=== PATIENT | male | born 1955 | race American Indian/Alaskan Native ===

== ENCOUNTER 2021-11-16 14:20 | Emergency (ER) | payer MEDICARE ==
[2021-11-16 16:19] VITALS: BP 115/73
== END 2021-11-16 19:00 | disposition left against medical advice (07) ==
LOC: ED 14:20 → EDBD 14:20 → ED 19:00
DX: M54.2 Cervicalgia (principal); Z53.21 Procedure and treatment not carried out due to patient leaving prior to being seen by health care provider

== ENCOUNTER 2021-11-21 06:29 | Emergency (ER) | payer MEDICARE ==
[2021-11-21] MEDS ORDERED: dexAMETHasone 20 MG/5 ML VIAL IM ONE (10:01)
[2021-11-21] MEDS ORDERED: diazePAM 5 MG TAB PO ONE (10:01)
[2021-11-21] MEDS ORDERED: IBUPROFEN 400 MG TAB PO ONE (10:03)
--- NOTE | 2021-11-21 10:07 | Emergency Department Report ---
ED Neck Pain/Injury HPI - General Chief Complaint: Neck Pain/Injury Stated Complaint: PAIN MOVING FROM NECK TO HEAD Time Seen by Provider: 11/21/21 09:56 Mode of arrival: Ambulatory Limitations: No Limitations - History of Present Illness Initial Comments: 66-year-old -[place] male presents with severe posterior neck pain. Patient states that his symptoms started last week Sunday. He denies any injury or trauma or strenuous activity. He states that the pain has been constant and gradually getting worse. He reports difficulty moving his neck due to the pain. He also reports that when he is lays down flat the pain radiates into his head and he also feels at times that he is having difficulty swallowing. He denies any fever, chills, chest pain, focal weakness, numbness, tingling or any additional symptoms. He states that he has been taking Goody powder without much relief of his pain. He denies any similar symptoms in the past. MD Complaint: neck pain -: Gradual, days(s) (last sunday ) Radiation: head, occiput Severity: severe Severity scale (0 -10): 10 Consistency: constant Improves With: medication OTC/prescribe Worsens With: movement of neck Context: unknown Associated Symptoms: none Treatments Prior to Arrival: other (Goody powder) - Related Data Previous Rx's Medication Instructions Recorded Last Taken Type Acetaminophen/Codeine [Tylenol 1 tab PO Q6H PRN #12 tab 11/21/21 Unknown Rx /Codeine # 3 tab] methOCARBAMOL [Robaxin TAB] 500 mg PO Q6H PRN #30 tab 11/21/21 Unknown Rx methylPREDNISolone [Medrol 4MG 4 mg PO DAILY #1 pack 11/21/21 Unknown Rx DOSEPAK (21 tabs)] Allergies Allergy/AdvReac Type Severity Reaction Status Date / Time No Known Allergies Allergy Unverified 11/16/21 16:17 ED Review of Systems ROS: Stated complaint: PAIN MOVING FROM NECK TO HEAD Other details as noted in HPI Comment: All other systems reviewed and negative Constitutional: denies: chills, fever Respiratory: denies: cough, shortness of breath, SOB with exertion, SOB at rest, wheezing Cardiovascular: denies: chest pain, palpitations, dyspnea on exertion, edema, syncope, paroxysmal nocturnal dyspnea Gastrointestinal: denies: abdominal pain, nausea, vomiting, diarrhea, constipation, hematemesis Genitourinary: denies: urgency, dysuria, frequency, hematuria, discharge, testicular pain, testicular mass Musculoskeletal: arthralgia, myalgia, other (Neck pain) Neurological: denies: headache, numbness, paresthesias, confusion, abnormal gait, vertigo Psychiatric: denies: anxiety, depression, auditory hallucinations, visual hallucinations, homicidal thoughts, suicidal thoughts Hematological/Lymphatic: denies: easy bleeding, easy bruising, swollen glands ED Past Medical Hx - Past Medical History Previous Medical History?: No - Surgical History Past Surgical History?: No - Medications Home Medications: Home Medications Medication Instructions Recorded Confirmed Last Taken Type Acetaminophen/Codeine [Tylenol 1 tab PO Q6H PRN #12 tab 11/21/21 Unknown Rx /Codeine # 3 tab] methOCARBAMOL [Robaxin TAB] 500 mg PO Q6H PRN #30 tab 11/21/21 Unknown Rx methylPREDNISolone [Medrol 4MG 4 mg PO DAILY #1 pack 11/21/21 Unknown Rx DOSEPAK (21 tabs)] ED Physical Exam - General Limitations: No Limitations General appearance: alert, in distress (Mild, secondary to pain) - Head Head exam: Present: atraumatic, normocephalic, normal inspection - Eye Eye exam: Present: normal appearance, PERRL, EOMI Pupils: Present: normal accommodation - ENT ENT exam: Present: normal exam, mucous membranes moist - Neck Neck exam: Present: normal inspection, tenderness, other (Range of motion of the neck moderately reduced). Absent: full ROM - Expanded Neck Exam Expanded Neck exam: Present: tenderness (Moderate to severe tenderness to palpation to the mid to upper paraspinal muscles bilaterally along the posterior with mod spasms. Diffuse mild midline tenderness). Absent: midline deformity, anterior neck swelling, thyroid mass, carotid bruit, tracheal deviation - Respiratory Respiratory exam: Present: normal lung sounds bilaterally. Absent: respiratory distress, wheezes, rales, rhonchi - Cardiovascular Cardiovascular Exam: Present: regular rate, normal rhythm, normal heart sounds - Neurological Exam Neurological exam: Present: alert, oriented X3, CN II-XII intact, normal gait. Absent: motor sensory deficit - Psychiatric Psychiatric exam: Present: normal affect, normal mood - Skin Skin exam: Present: intact ED Course Vital Signs 11/21/21 11/21/21 09:03 11:33 Temperature 98.2 F Pulse Rate 71 70 Respiratory 16 18 Rate Blood Pressure 110/73 112/70 [Left] O2 Sat by Pulse 100 100 Oximetry ED Medical Decision Making - Lab Data Result diagrams: 11/21/21 10:26 - Radiology Data Radiology results: report reviewed Patient: DINA CHAMPION MR#: [id number] : 1955 Acct:[id number] Age/Sex: 66 / M ADM Date: 11/21/21 Loc: ED Attending Dr: Ordering Physician: FELA RACHLE Date of Service: 11/21/21 Procedure(s): CT cervical spine wo con Accession Number(s): [id number] cc: FELA RACHEL CT CERVICAL SPINE: 11/21/2021 INDICATION / CLINICAL INFORMATION: severe neck pain/limited ROM. COMPARISON: None available. FINDINGS: CT images of the cervical spine were obtained. Images are evaluated in the axial, coronal, and sagittal planes. There is no evidence of acute abnormality. Reversal of cervical lordosis is centered at the C5 level with the patient positioned for this exam. There is no evidence of acute abnormality. There is no evidence of osseous canal stenosis. Mild disc space narrowing and diffuse disc bulging is present at the C3-4, C4- 5, C5-6, and C6-7 levels. There is no CT evidence of lateralization. CRANIOCERVICAL JUNCTION: Unremarkable. PARASPINAL STRUCTURES: No significant abnormality IMPRESSION: No acute abnormality. Mild degenerative change. All CT scans at this location are performed using dose reduction to ALARA by means of automated exposure control. Signer Name: Michael Burkett MD Signed: 11/21/2021 10:32 AM Workstation Name: [id number] Transcribed By: TIFFANIE Dictated By: Michael Burkett MD Electronically Authenticated By: Michael Burkett MD Signed Date/Time: 11/21/21 1032 DD/ 1027 TD/TT: - Medical Decision Making CT show cervical DDD, no other acute abnormality. CBC normal. He is afebrile and his VS are stable. He is controlling his secretions well, no stridor, trachea is midline and he has no trismus. He is not in any respiratory distress. He has no focal deficits on exam and his gait is normal. Very low suspicion for meningitis, deep space neck infection or mass, CVA or any other significant emergent issue requiring additional testing or admission at this time. 1125 - Went to re-eval patient and discuss results, tx plan and suspected dx with him but he was no longer in room. 1151--still unable to locate patient. Patient apparently eloped without notifying myself or staff. Critical care attestation.: If time is entered above; I have spent that time in minutes in the direct care of this critically ill patient, excluding procedure time. ED Disposition Clinical Impression: Degenerative disc disease, cervical, Neck pain, Muscle spasms of neck Disposition: 07 LEFT AWOL/ELOPED Is pt being admited?: No Does the pt Need Aspirin: No Condition: Stable Instructions: Neck Exercises, Musculoskeletal Pain, Degenerative Disk Disease Additional Instructions: I recommend that you take the medrol dose pack, the robaxin and the tylenol 3 for pain. I do recommend that you follow up with Orth[facility] specialist, they will be listed on your discharge instructions for follow up. Return to ED if worse and if you develope associated headache, fever, inability to swallow or focal weakness, or any other worsening symptoms. Prescriptions: methylPREDNISolone [Medrol 4MG DOSEPAK (21 tabs)] 4 mg PO DAILY #1 pack methOCARBAMOL [Robaxin TAB] 500 mg PO Q6H PRN #30 tab PRN Reason: Spasms Acetaminophen/Codeine [Tylenol /Codeine # 3 tab] 1 tab PO Q6H PRN #12 tab PRN Reason: Pain , Severe (7-10) Referrals: RASHAUN MILLER MD [Staff Physician] - 3-5 Days [facility] [Provider Group] - 3-5 Days ([facility] specialist. [place] number: ) Time of Disposition: 11:14
--- NOTE | 2021-11-21 10:37 | Cat Scan Report ---
CT CERVICAL SPINE: 11/21/2021 INDICATION / CLINICAL INFORMATION: severe neck pain/limited ROM. COMPARISON: None available. FINDINGS: CT images of the cervical spine were obtained. Images are evaluated in the axial, coronal, and sagitt al planes. There is no evidence of acute abnormality. Reversal of cervical lordosis is centered at the C5 level with the patient positioned for this exam. There is no evidence of acute abnormality. There is no evidence of osseous canal stenosis. Mild disc space narrowing and diffuse disc bulging is present at the C3-4, C4-5, C5-6, and C6-7 level s. There is no CT evidence of lateralization. CRANIOCERVICAL JUNCTION: Unremarkable. PARASPINAL STRUCTURES: No significant abnormality IMPRESSION: No acute abnormality. Mild degenerative change. All CT scans at this location are performed using dose reduction to ALARA by means of automated expos ure control. Signer Name: Michael Burkett MD Signed: 11/21/2021 10:32 AM Workstation Name: [id number]
[2021-11-21 11:02] LABS: Basophils % (Auto) 0.4 % (0.0-1.8); Eosinophils # (Auto) 0.1 K/mm3 (0.0-0.4); Eosinophils % (Auto) 1.6 % (0.0-4.3); Hematocrit 35.3 % (35.5-45.6); Hemoglobin 11.9 gm/dl (11.8-15.2); Lymphocytes # (Auto) 1.5 K/mm3 (1.2-5.4); Lymphocytes % (Auto) 24.8 % (13.4-35.0); Mean Corpuscular HGB Conc 34 % (32-34); Mean Corpuscular Volume 94 fl (84-94); Monocytes # (Auto) 0.6 K/mm3 (0.0-0.8); Monocytes % (Auto) 8.9 % (0.0-7.3); Platelet Count 402 K/mm3 (140-440); Red Blood Count 3.78 M/mm3 (3.65-5.03); Red Cell Distribution Width 13.6 % (13.2-15.2)
[2021-11-21 11:35] VITALS: BP 112/70
== END 2021-11-21 11:33 | disposition left against medical advice (07) ==
LOC: ED 06:29
DX: M50.30 Other cervical disc degeneration, unspecified cervical region (principal); M62.838 Other muscle spasm
CPT/HCPCS: 36415; 72125; 85025; 96372; 99284; J1100